=== PATIENT | male | born 1945 | race Caucasian/White ===

== ENCOUNTER 2016-08-13 07:19 | Day surgery (SDC) | payer OTHER, BC ==
[2016-08-13] MEDS ORDERED: NS 500 ML IV 500 ML IV ONE (07:45)
[2016-08-13] MEDS ORDERED: TETRACAINE 0.5% OPHTH 1 DOSE AFFEYE ONE ×4 (07:50→11:09)
[2016-08-13] MEDS ORDERED: VIGAMOX 0.5% OPHTH 1 DOSE AFFEYE ONE ×5 (07:55→11:44)
[2016-08-13] MEDS ORDERED: PROLENSA OPHTH 1 DOSE AFFEYE ONE (08:06)
[2016-08-13] MEDS ORDERED: ALPHAGAN-P OPHTH 1 DOSE AFFEYE ONE (08:07)
[2016-08-13] MEDS ORDERED: MYDRIACIL OPHTH 1 DOSE AFFEYE ONE ×4 (08:08→10:54)
[2016-08-13] MEDS ORDERED: AK-DILATE 2.5% OPHTH 1 DOSE OP ONE ×4 (08:08→10:54)
[2016-08-13] MEDS ORDERED: CYCLOGYL 1% OPHTH 1 DOSE OP ONE ×4 (08:08→10:54)
[2016-08-13] MEDS ORDERED: VERSED ONE (09:49)
[2016-08-13] MEDS: VERSED ONE ×2 (10:47→10:53)
[2016-08-13] MEDS ORDERED: AK-DILATE 10% OPHTH 1 DOSE AFFEYE ONE (10:55)
[2016-08-13] MEDS ORDERED: ADRENALINE CHL INJ IJ ONE ×2 (11:09→11:24)
[2016-08-13] MEDS ORDERED: XYLOCAINE-MPF 1% IJ ONE ×2 (11:09→11:24)
[2016-08-13] MEDS ORDERED: BETADINE OPHTH SOLN 5% EACHEYE ONE (11:09)
[2016-08-13] MEDS ORDERED: DUOVISC IO ONE ×2 (11:09→11:24)
[2016-08-13] MEDS ORDERED: BSS OPHTH (PLAIN) 500 ML with VANCOMYCIN HCL 500 MG VIAL 25 MG, ADRENALINE CHL INJ 1 MG IR ONE ×6 (11:09)
[2016-08-13] MEDS ORDERED: VISCOAT 0.5 ML IO ONE (11:31)
[2016-08-13 12:10] VITALS: BP 161/90
== END 2016-08-13 12:10 | disposition home or self-care (01) ==
LOC: SURG1 07:19
PROVIDERS: ATTEND Ophthalmology
PROC: 08RK3JZ Replacement of Left Lens with Synthetic Substitute, Percutaneous Approach (ICD-10-PCS; principal; 2016-08-13 10:30)
PROC: 08J1XZZ Inspection of Left Eye, External Approach (ICD-10-PCS; principal; 2016-08-13 10:30)
PROC: 08DK3ZZ Extraction of Left Lens, Percutaneous Approach (ICD-10-PCS; principal; 2016-08-13 10:30)
DX: H25.12 Age-related nuclear cataract, left eye (principal); H25.012 Cortical age-related cataract, left eye; H25.042 Posterior subcapsular polar age-related cataract, left eye; H52.222 Regular astigmatism, left eye
CPT/HCPCS: 99100; A4217; J0170; J2250; J3370

== ENCOUNTER 2016-09-17 09:01 | Day surgery (SDC) | payer OTHER, BC ==
[2016-09-17] MEDS ORDERED: NS 500 ML IV 500 ML IV ONE (09:05)
[2016-09-17] MEDS ORDERED: TETRACAINE 0.5% OPHTH 1 DOSE AFFEYE ONE ×6 (09:10→12:05)
[2016-09-17] MEDS ORDERED: VIGAMOX 0.5% OPHTH 1 DOSE AFFEYE ONE ×6 (09:11→12:20)
[2016-09-17] MEDS ORDERED: PROLENSA OPHTH 1 DOSE AFFEYE ONE (09:22)
[2016-09-17] MEDS ORDERED: ALPHAGAN-P OPHTH 1 DOSE AFFEYE ONE (09:23)
[2016-09-17] MEDS ORDERED: AK-DILATE 2.5% OPHTH 1 DOSE OP ONE ×3 (09:24→09:26)
[2016-09-17] MEDS ORDERED: MYDRIACIL OPHTH 1 DOSE AFFEYE ONE ×3 (09:24→09:26)
[2016-09-17] MEDS ORDERED: CYCLOGYL 1% OPHTH 1 DOSE OP ONE ×3 (09:24→09:26)
[2016-09-17] MEDS ORDERED: VERSED ONE ×2 (10:04→15:06)
[2016-09-17] MEDS ORDERED: ALCAINE or OPHTHETIC AFFEYE ONE (11:05)
[2016-09-17] MEDS ORDERED: ALCAINE or OPHTHETIC 1 DOSE AFFEYE ONE (11:35)
[2016-09-17] MEDS ORDERED: VERSED IVP ONE (11:35)
[2016-09-17] MEDS ORDERED: AK-DILATE 10% OPHTH 1 DOSE AFFEYE ONE (11:38)
[2016-09-17] MEDS ORDERED: BETADINE OPHTH SOLN 5% EACHEYE ONE (11:52)
[2016-09-17] MEDS ORDERED: ADRENALINE CHL INJ IJ ONE ×2 (11:53→12:05)
[2016-09-17] MEDS ORDERED: DUOVISC IO ONE ×2 (11:53→12:05)
[2016-09-17] MEDS ORDERED: XYLOCAINE-MPF 1% IJ ONE ×2 (11:53→12:05)
[2016-09-17] MEDS ORDERED: BSS OPHTH (PLAIN) 500 ML with VANCOMYCIN HCL 500 MG VIAL 25 MG, ADRENALINE CHL INJ 1 MG IR ONE ×6 (11:54)
[2016-09-17] MEDS ORDERED: VISCOAT 0.5 ML IO ONE ×2 (12:13→12:18)
[2016-09-17 12:52] VITALS: BP 146/84
== END 2016-09-17 12:55 | disposition home or self-care (01) ==
LOC: SURG1 09:01
PROVIDERS: ATTEND Ophthalmology
PROC: 08RK3JZ Replacement of Left Lens with Synthetic Substitute, Percutaneous Approach (ICD-10-PCS; principal; 2016-09-17 14:15)
PROC: 08DK3ZZ Extraction of Left Lens, Percutaneous Approach (ICD-10-PCS; principal; 2016-09-17 14:15)
DX: H25.12 Age-related nuclear cataract, left eye (principal); H25.012 Cortical age-related cataract, left eye; H25.042 Posterior subcapsular polar age-related cataract, left eye; H52.222 Regular astigmatism, left eye
CPT/HCPCS: 99100; A4217; J0170; J2250; J3370

== ENCOUNTER → 2017-01-22 | Outpatient (CLI) | payer OTHER, BC ==
--- NOTE | 2017-01-23 10:50 | CT ---
CT OF THE ABDOMEN AND PELVIS WITHOUT CONTRAST HISTORY: Hematuria and kidney stones. Comparison: None Technique: Multiple axial images of the abdomen and pelvis were obtained from the lung bases to the pubic symphy sis without the administration of IV contrast. Dose reduction techniques including Automated Exposur e Control (AEC) and adjustment of mA and kV were utlized. Findings: The heart is normal in size. There is no pericardial effusion. Lung bases are clear without focal con solidation, pleural effusion or pneumothorax. The sensitivity for focal lesion detection within the solid abdominal viscera is diminished without t he use of IV contrast. Liver and spleen are normal in size, and contour. No focal lesions. No ductal dilitation. Gallbladder is present. No calcified gallstones or gallbladder wall thickening. The pancreas is unremarkable. Ad renal glands are normal. Bilateral nonobstructing renal stones with the largest in the right measurin g 5 mm in the largest on the left measuring 3 mm. Multiple bilateral simple parapelvic and renal cor tical cysts No bowel obstruction or inflammation. No abnormal appearing mesenteric or retroperitoneal lymph node s. No free fluid or fluid collections. The bladder is normal in appearance. Prostate measures 6.8 cm. No free fluid or abnormal pelvic lymph nodes. No aggressive osseous lesions. IMPRESSION: 1. Bilateral nonobstructing renal stones. 2. Prostatomegaly. Correlate with PSA levels. 3. Bilateral simple parapelvic and cortical renal cysts. 4. Diverticulosis without diverticulitis. Reported By:
== END ==
LOC: RAD 13:49
PROVIDERS: ATTEND Internal Medicine
DX: N20.0 Calculus of kidney (principal); R31.9 Hematuria, unspecified
CPT/HCPCS: 74176